=== PATIENT | female | born 1965 | race Caucasian/White ===

== ENCOUNTER 2017-11-27 00:38 | Emergency (ER) | payer BC ==
[~2017-11-27] VITALS: Ht 162.6 cm; Wt 135.8 kg
[~2017-11-27 00:38] MED LIST: ASPIRIN EC325 MG PO; BENICAR20 MG PO; CALCIUM 500 MG1 EAC1 PO; CYCLOBENZAPRINE10 MG PO; DILAUDID2 MG PO; DULCOLAX10 MG PR; DULCOLAX5 MG PO; FENOGLIDE40 MG PO; Flexeril PO; GLUCOPHAGE500 MG PO; LASIX20 MG PO; LYRICA75 MG PO; METANX CAPSULE1 EACH PO; MOBIC7.5 MG PO; PRAVACHOL40 MG PO; Prevacid PO; SENNA-TIME S T1 EACH PO; STRESS FORMULA1 TAB PO; TRIPLE FLEX CA1 EACH PO; VICODIN 5-3001 EACH PO; VITAMIN D1000 INTUN PO; Vicodin,Lortab 5/500 PO; ZANAFLEX4 M1 PO; ZYRTEC-D1 TABLE1 PO; Zyrtec PO; [UNRECOGNIZED DRUG - CODE] PO
[2017-11-27 01:34] LABS: HEMATOCRIT 34.8 % (36.0-46.0); HEMOGLOBIN 11.6 G/DL (11.9-15.5); MCHC 33.3 G/DL (30.0-36.0); PLATELET COUNT 383 K/uL (156-360); RBC DIS.WIDTH-CV 13.5 % (11.8-14.6); RBC DIS.WIDTH-SD 43.2 % (39-53); WHITE BLOOD COUNT 8.6 K/uL (4.1-10.2)
[2017-11-27 01:44] LABS: ALBUMIN 4.3 g/dL (3.2-4.8); CHLORIDE 100 mEq/L (99-109); POTASSIUM 4.4 mEq/L (3.7-5.4); SODIUM 136 mEq/L (136-147)
[2017-11-27 01:47] LABS: GLUCOSE 120 mg/dL (70-99); TOTAL PROTEIN 7.9 g/dL (6.4-8.3)
[2017-11-27 01:49] LABS: TOTAL BILIRUBIN 0.2 mg/dL (0.0-1.0)
[2017-11-27 01:50] LABS: ALKALINE PHOSPHATASE 72 IU/L (3-129); CREATININE 0.8 mg/dL (0.6-1.3); GFR ESTIMATE (CALCULATED) > 59 mL/min/
[2017-11-27 01:51] LABS: UREA NITROGEN (BUN) 20 mg/dL (9-23)
[2017-11-27 01:52] LABS: AST (GOT) 16 IU/L (2-34)
[2017-11-27 02:22] LABS: ALT (GPT) 10 IU/L (3-49)
[2017-11-27 06:28] VITALS: BP 115/57
== END 2017-11-27 06:37 | disposition home or self-care (01) ==
LOC: EME 00:38
PROVIDERS: Emergency Medicine
DX: T81.30XA Disruption of wound, unspecified, initial encounter (principal); Z98.890 Other specified postprocedural states; Z98.1 Arthrodesis status; R11.2 Nausea with vomiting, unspecified; R20.0 Anesthesia of skin; I10 Essential (primary) hypertension
CPT/HCPCS: 72132; 80053; 83605; 85027; 87040; 99281; 99285; J7040

== ENCOUNTER 2017-12-03 11:15 | Emergency (ER) | payer BC ==
[~2017-12-03] VITALS: Ht 162.6 cm; Wt 135.0 kg
[2017-12-03] MEDS ORDERED: KEFLEX500 MG PO (13:28)
[2017-12-03 14:04] LABS: APPEARANCE CLEAR ((CLEAR)); BILIRUBIN NEGATIVE; BLOOD NEGATIVE; COLOR AMBER ((YELLOW)); GLUCOSE (STRIP) NEGATIVE; KETONES NEGATIVE; LEUKOCYTES NEGATIVE; NITRITE POSITIVE; PROTEIN (STRIP) NEGATIVE
[2017-12-03 14:08] VITALS: BP 0/0
[2017-12-03 14:18] LABS: BACTERIA RARE /HPF; EPITHELIAL CELLS 1+ /HPF; HYALINE CASTS 0-5 /LPF; MUCUS TRACE /LPF; RED BLOOD CELLS 0-5 /HPF (0-5); WHITE BLOOD CELLS 0-5 /HPF (0-5)
== END 2017-12-03 14:09 | disposition home or self-care (01) ==
LOC: EME 11:15
PROVIDERS: Physician Assistant
DX: N39.0 Urinary tract infection, site not specified (principal); R21 Rash and other nonspecific skin eruption; T36.8X5A Adverse effect of other systemic antibiotics, initial encounter; I10 Essential (primary) hypertension; K21.9 Gastro-esophageal reflux disease without esophagitis; Z87.891 Personal history of nicotine dependence; Z98.1 Arthrodesis status; Z88.1 Allergy status to other antibiotic agents; Z88.5 Allergy status to narcotic agent
CPT/HCPCS: 81003; 87086; 99281; 99283

== ENCOUNTER 2017-12-16 17:30 | Emergency (ER) | payer BC ==
[~2017-12-16] VITALS: Ht 162.6 cm; Wt 140.2 kg
[~2017-12-16 17:30] MED LIST changes: +KEFLEX500 MG PO
[2017-12-16 18:25] LABS: BASOPHIL (%) 0.7 % (0-1); BASOPHIL COUNT 0.1 K/uL (0-0.1); EOSINOPHIL (%) 2.9 % (0-5); EOSINOPHIL COUNT 0.2 K/uL (0-0.3); HEMATOCRIT 35.5 % (36.0-46.0); HEMOGLOBIN 11.6 G/DL (11.9-15.5); IMMATURE GRANULOCYTE (%) 0.1 % (0.0-0.7); LYMPHOCYTE (%) 49.6 % (15-42); LYMPHOCYTE COUNT 3.4 K/uL (1.0-2.8); MCH 28.4 PG (29.0-34.0); MCHC 32.7 G/DL (30.0-36.0); MONOCYTE (%) 5.4 % (3-12); MONOCYTE COUNT 0.4 K/uL (0-0.8); NEUTROPHIL (%) 41.3 % (45-76); NEUTROPHIL COUNT 2.8 K/uL (1.8-6.4); PLATELET COUNT 303 K/uL (156-360); RBC DIS.WIDTH-CV 14.4 % (11.8-14.6); RED BLOOD COUNT 4.08 M/uL (3.80-5.20); WHITE BLOOD COUNT 6.9 K/uL (4.1-10.2)
[2017-12-16 18:32] LABS: ALBUMIN 4.1 g/dL (3.2-4.8)
[2017-12-16 18:33] LABS: CHLORIDE 101 mEq/L (99-109); POTASSIUM 4.2 mEq/L (3.7-5.4); SODIUM 139 mEq/L (136-147)
[2017-12-16 18:35] LABS: GLUCOSE 112 mg/dL (70-99); TOTAL PROTEIN 7.3 g/dL (6.4-8.3)
[2017-12-16 18:37] LABS: TOTAL BILIRUBIN 0.5 mg/dL (0.0-1.0)
[2017-12-16 18:38] LABS: ALKALINE PHOSPHATASE 67 IU/L (3-129)
[2017-12-16 18:39] LABS: CREATININE 0.8 mg/dL (0.6-1.3); GFR ESTIMATE (CALCULATED) > 59 mL/min/
[2017-12-16 18:40] LABS: AST (GOT) 16 IU/L (2-34); UREA NITROGEN (BUN) 17 mg/dL (9-23)
[2017-12-16 18:42] LABS: ALT (GPT) 11 IU/L (3-49); ERTH.SED.RATE 54 MM/HR (0-30)
[2017-12-16 19:27] LABS: C-REACTIVE PROTEIN 10.2 MG/L (0-10)
[2017-12-16] MEDS ORDERED: BACTRIM,SEPT1 TABLET PO (19:58)
[2017-12-16 20:20] VITALS: BP 136/74
== END 2017-12-16 20:20 | disposition home or self-care (01) ==
LOC: EME 17:30
PROVIDERS: Emergency Medicine
DX: Z48.01 Encounter for change or removal of surgical wound dressing (principal); M54.5 Low back pain; I10 Essential (primary) hypertension; K21.9 Gastro-esophageal reflux disease without esophagitis; Z98.1 Arthrodesis status; Z96.651 Presence of right artificial knee joint; Z98.890 Other specified postprocedural states; Z91.018 Allergy to other foods; Z88.5 Allergy status to narcotic agent; Z91.048 Other nonmedicinal substance allergy status; Z88.1 Allergy status to other antibiotic agents
CPT/HCPCS: 80053; 83605; 85025; 85651; 86140; 87040; 99281; 99284